=== PATIENT | female | born 1970 | race Two or more races ===

== ENCOUNTER → 2024-08-30 | Outpatient (CLI) | payer MEDICAID, SELFPAY ==
--- NOTE | 2024-08-30 14:09 | XR_ITS ---
Examination: Bilateral wrists 6 views TECHNIQUE: AP oblique lateral each wrist total 6 views Exam date and time: August 30, 2024 1444 hours INDICATIONS: Bilateral wrist pain one year FINDINGS: Moderate osteopenia Mild osteoarthritis right first carpometacarpal joint Moderate osteoarthritis left first carpometacarpal joint No erosive arthritis No fractures IMPRESSION: Mild osteoarthritis right first carpometacarpal joint Moderate osteoarthritis left first carpometacarpal joint Both joints are amenable to steroid injection under fluoroscopic guidance in the radiology department as clinically warranted
--- NOTE | 2024-08-30 14:10 | XR_ITS ---
Examination: Bilateral hands, 6 views. Technique: AP, Oblique, Lateral each hand total 6 views Date and time of exam: August 30, 2024 1437 hours INDICATIONS: Bilateral hand pain one year Findings: Moderate osteopenia. Mild to moderate bilateral osteoarthritis first carpometacarpal joints Mild osteoarthritis distal interphalangeal joints second through fifth digits and interphalangeal joints first digits No erosive arthritis No fractures IMPRESSION: Osteoarthritis as above
== END | disposition home or self-care (01) ==
LOC: CDIM 14:01
PROVIDERS: PCP Nurse Practitioner Gerontology; Referring Provider Nurse Practitioner Gerontology; Visit Provider Nurse Practitioner Gerontology
DX: M18.0 Bilateral primary osteoarthritis of first carpometacarpal joints (principal); M19.042 Primary osteoarthritis, left hand; M19.041 Primary osteoarthritis, right hand
CPT/HCPCS: 73110; 73130